=== PATIENT | male | born 2005 | race Two or more races ===

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

== ENCOUNTER 2025-09-20 10:32 | Outpatient (CLI) | payer OTHER, SELFPAY ==
[2025-09-20 20:26] LABS: Coronavirus 19, PCR Not Detected (NotDetected); Influenza B, PCR Not Detected (NotDetected)
[2025-09-20 22:52] LABS: Influenza A, PCR Detected (NotDetected)
== END 2025-09-20 23:59 ==
LOC: LAB.DROPOF 09-22 10:32
PROVIDERS: PCP Nurse Practitioner Family; Visit Provider Student in an Organized Health Care Education/Training Program
DX: J06.9 Acute upper respiratory infection, unspecified (principal)
CPT/HCPCS: 87631